=== PATIENT | female | born 1975 | race Caucasian/White ===

== ENCOUNTER 2017-11-11 17:30 | Emergency (ER) | payer SELFPAY ==
--- NOTE | 2017-11-11 17:45 | EDM.PDOC ---
ED HPI GENERAL MEDICAL PROBLEM - General Chief Complaint: Respiratory Problem Stated Complaint: HAVING ASMIA PROBLEMS Time Seen by Provider: 11/11/17 17:44 Source of Information: Reports: Patient History Limitations: Reports: No Limitations - History of Present Illness INITIAL COMMENTS - FREE TEXT/NARRATIVE: HISTORY AND PHYSICAL: History of present illness: 42-year-old female presenting to emergency department with chief complaint shortness of breath 3 days with past medical history of asthma. Patient states that for the past 3 days she has been having some worsening shortness of breath. She has associated cough with greenish yellow sputum production. States that she does have a history of asthma and always has an exacerbation when she gets a "cold". She has been using DayQuil with some relief. She did have one day of sore throat but this has been relieved. She has had subjective fever and chills. States she has only been in [place] for 6 months and has had not had a flareup so is has not had any medications. She does have a history of having an albuterol inhaler. She did have nebs when she was a child. She denies daily use of medications. No history of intubation secondary to asthma. She currently denies any chest pain, palpitations, syncopal symptoms, or focal neurologic deficits. On exam there is generalized wheezing heard throughout with decreased breath sounds. Oxygen saturation 98% on room air Review of systems: As per history of present illness and below otherwise all systems reviewed and negative. Past medical history: As per history of present illness and as reviewed below otherwise noncontributory. Surgical history: As per history of present illness and as reviewed below otherwise noncontributory. Social history: No reported history of drug or alcohol abuse. Family history: As per history of present illness and as reviewed below otherwise noncontributory. Physical exam: HEENT: Atraumatic, normocephalic, pupils reactive, negative for conjunctival pallor or scleral icterus, mucous membranes moist, throat clear, neck supple, nontender, trachea midline. Lungs: Generalized wheezing heard throughout with decreased breath sounds, breath sounds equal bilaterally, chest nontender. Heart: S1S2, regular, negative for clicks, rubs, or JVD. Abdomen: Soft, nondistended, nontender. Negative for masses or hepatosplenomegaly. Negative for costovertebral tenderness. Pelvis: Stable nontender. Genitourinary: Deferred. Rectal: Deferred. Extremities: Atraumatic, negative for cords or calf pain. Neurovascular unremarkable. Neuro: Awake, alert, oriented. Cranial nerves II through XII unremarkable. Cerebellum unremarkable. Motor and sensory unremarkable throughout. Exam nonfocal. Diagnostics: Chest x-ray Therapeutics: DuoNeb 2, 125 mg IM Solu-Medrol, Impression: Shortness of breath Acute asthma exacerbation Plan: Patient did have significant improvement after 1 DuoNeb but did have continued decreased breath sounds and some mild bilateral lower lobe wheezing so additional DuoNeb was ordered. Patient was turned over to Dr. Javier as chest x -ray was still pending. I did give her a prescription for a albuterol rescue inhaler as well as a work note. Definitive disposition and diagnosis as appropriate pending reevaluation and review of above. chest Pain Score (Numeric/FACES): 7 - Related Data Allergies Allergy/AdvReac Type Severity Reaction Status Date / Time codeine Allergy Itching Verified 11/11/17 17:40 Home Meds: Home Meds . [No Known Home Meds] 11/11/17 [History] Past Medical History - Past Health History Medical/Surgical History: Denies Medical/Surgical History Respiratory History: Reports: Asthma - Infectious Disease History Infectious Disease History: Reports: Chicken Pox Social & Family History - Tobacco Use Smoking Status *Q: Former Smoker Used Tobacco, but Quit: Yes Month/Year Tobacco Last Used: 2006 - Caffeine Use Caffeine Use: Reports: Coffee, Soda, Tea - Recreational Drug Use Recreational Drug Use: No ED ROS GENERAL - Review of Systems Review Of Systems: ROS reveals no pertinent complaints other than HPI. ED EXAM, GENERAL - Physical Exam Exam: See Below Course - Vital Signs Last Recorded V/S: Last Vital Signs Temp 97.5 F 11/11/17 20:40 Pulse 100 11/11/17 20:40 Resp 18 11/11/17 20:40 BP 139/68 11/11/17 20:40 Pulse Ox 97 11/11/17 20:40 - Orders/Labs/Meds Orders: Active Orders 24 hr Category Date Time Status RT Aerosol Therapy [RC] ASDIRECTED Care 11/11/17 17:52 Active CXR [Chest 2V] [CR] Stat Exams 11/11/17 17:51 Taken Meds: Medications Discontinued Medications Generic Name Dose Route Start Last Admin Trade Name Freq PRN Reason Stop Dose Admin Albuterol/Ipratropium 3 ml 11/11/17 17:51 11/11/17 17:57 Duoneb 3.0-0.5 Mg/3 Ml NEB 11/11/17 17:52 3 ml ONETIME ONE Administration Methylprednisolone Sodium Succinate 125 mg 11/11/17 17:52 11/11/17 18:06 Solu-Medrol IVPUSH 11/11/17 17:53 Not Given ONETIME ONE Methylprednisolone Sodium Succinate 125 mg 11/11/17 18:05 11/11/17 18:06 Solu-Medrol IM 11/11/17 18:06 125 mg ONETIME ONE Administration Departure - Departure Time of Disposition: 08:45 (Note patient was discharge 11/12/17) Disposition: Home, Self-Care 01 Clinical Impression: Shortness of breath, Wheezing Asthma exacerbation Qualifiers: Asthma severity: mild Asthma persistence: intermittent Qualified Code(s): J45.21 - Mild intermittent asthma with (acute) exacerbation - Discharge Information Instructions: Asthma, Adult, [id number] Referrals: PCP,None [Primary Care Provider] - Forms: ED Department Discharge Additional Instructions: My general discharge The following information is given to patients seen in the emergency department who are being discharged to home. This information is to outline your options for follow-up care. We provide all patients seen in our emergency department with a follow-up referral. The need for follow-up, as well as the timing and circumstances, are variable depending upon the specifics of your emergency department visit. If you don't have a primary care physician on staff, we will provide you with a referral. We always advise you to contact your personal physician following an emergency department visit to inform them of the circumstance of the visit and for follow-up with them and/or the need for any referrals to a consulting specialist. The emergency department will also refer you to a specialist when appropriate. This referral assures that you have the opportunity for follow-up care with a specialist. All of these measure are taken in an effort to provide you with optimal care, which includes your follow-up. Under all circumstances we always encourage you to contact your private physician who remains a resource for coordinating your care. When calling for follow-up care, please make the office aware that this follow-up is from your recent emergency room visit. If for any reason you are refused follow-up, please contact the [facility] Emergency Department at and asked to speak to the emergency department charge nurse. [facility] [address] [place] [address] [address] Please follow-up with primary care physician as we discussed. Take medication as prescribed. Return to emergency department if any new or worsening symptoms. - My Orders Last 24 Hours: My Active Orders 11/11/17 17:51 CXR [Chest 2V] [CR] Stat 11/11/17 17:52 RT Aerosol Therapy [RC] ASDIRECTED - Assessment/Plan Last 24 Hours: My Active Orders 11/11/17 17:51 CXR [Chest 2V] [CR] Stat 11/11/17 17:52 RT Aerosol Therapy [RC] ASDIRECTED
[2017-11-11] MEDS ORDERED: Albuterol/Ipratropium 3.0-0.5 MG/3 ML Neb Soln NEB ONE (17:51)
[2017-11-11] MEDS ORDERED: methylPREDNISolone Sodium Succinate 125 MG/2 ML SDV IVPUSH ONE (17:52)
[2017-11-11] MEDS ORDERED: methylPREDNISolone Sodium Succinate 125 MG/2 ML SDV IM ONE (18:05)
--- NOTE | 2017-11-14 10:35 | CR ---
EXAM DATE: 11/11/17 PATIENT'S AGE: 42 Patient: TYRONE PELAEZ Facility: [place], [place] Site . Site : [id number] Study: XRay Chest [id number] 7:23:38 PM Ordering Physician: Lefty Kulkarni Final Report: INDICATION: sob 2 View Chest. Findings: The lungs are clear. Pulmonary vascularity, mediastinum and cardiac silhouette are within normal limits. No effusions and no pneumothorax. Osseous structures appear unremarkable. Impression: No evidence of acute cardiopulmonary disease. Dictated by: Jus Dalton MD @ 11/11/2017 19:37:00 (Electronic Signature) Report Signed by Proxy. SAMANTHA
== END 2017-11-11 20:41 | disposition home or self-care (01) ==
LOC: MW.ED 17:30
DX: J45.21 Mild intermittent asthma with (acute) exacerbation (principal); Z88.5 Allergy status to narcotic agent; Z87.891 Personal history of nicotine dependence
CPT/HCPCS: 71046; 94640; 96372; 99285; J2930; J7620-GY